=== PATIENT | female | born 1945 | race Caucasian/White ===

== ENCOUNTER → 2023-07-21 | Outpatient (CLI) | payer MEDICARE, SELFPAY ==
--- NOTE | 2023-07-21 13:15 | CT_ITS ---
STUDY: CT ABDOMEN AND PELVIS WITH AND WITHOUT CONTRAST REASON FOR EXAM: Female, 78 years old. abnormal liver image. History of right renal mass. RADIATION DOSAGE (If Supplied By Facility): CTDIvol = ( 10.69 ) mGy, DLP = ( 934.2 ) mGycm TECHNIQUE: Transaxial images were obtained from the dome of the diaphragm to the symphysis pubis without oral contrast. IV 100mL Isovue-300 was administered. Sagittal and coronal images were reconstructed. Individualized dose optimization techniques were used for this CT. COMPARISON: None. FINDINGS: The visualized lung bases are unremarkable. The visualized portions of the heart are within normal limits. Small cysts seen in the right lobe of the liver. There are surgical clips in the gallbladder fossa consistent with a prior cholecystectomy. Normal spleen. Normal pancreas. Normal bilateral adrenal glands. 8mm cyst in the upper lateral aspect of the right kidney. No renal mass is seen. Soft tissue density and adjacent to the lower and midportion of the right kidney most likely represents the psoas muscle. There is evidence of a labral convex scoliosis. Multiple small cysts are seen in the left kidney. Normal visualized stomach. Normal small intestine. Normal colon. The appendix is visualized and appears normal. Normal abdominal aorta. Normal inferior vena cava. Normal retroperitoneum. Normal urinary bladder. Normal abdominal wall. There are diffuse degenerative changes of the visualized lumbar spine. Prior fusion at the L4-L5 level. CT/CT Abd/Pelvis W/WO Contrast IMPRESSION: No right renal masses seen. Left renal cysts. Small hepatic cysts. Electronically Signed: Cameron Messer MD at 15:31 EST ,
[2023-07-21 13:41] LABS: CREATININE FINGERSTICK < 1.0 mg/dL (0.55-1.02); EGFR FINGERSTICK > 60.0000 mL/min (>60)
== END | disposition home or self-care (01) ==
LOC: CT 13:15
PROVIDERS: PCP Family Medicine; Referring Provider Family Medicine; Visit Provider Family Medicine
DX: R93.2 Abnormal findings on diagnostic imaging of liver and biliary tract (principal)
CPT/HCPCS: 74178; Q9967

== ENCOUNTER 2023-07-30 10:30 | Outpatient (RCR) | payer MEDICARE, SELFPAY ==
--- NOTE | 2023-05-21 09:57 | HP.PTEVAL_ITS ---
Patient's Visit Information Visit Information Visit Information: GORDO AMBROSIO is a 78 year old F referred to Physical Therapy by KUNAL DANG with a diagnosis of SPONDYLOLISTHESIS. S/P SO LUMBAR LAMINECTOMY AND FUSION 04/25/23. Date of Evaluation: 05/21/23 Physical Therapist: Suzette Malone, PT, Cert MDT Visit Plan Frequency: 2-3x /Week Duration: 4-6 Weeks Plan: PT RE-CHECK JUN 11 2023. CONTINUE BACK BRACE IN WEIGHT BEARING AND NO BENDING OR TWISTING UNTIL JUN 11 2023. GAIT TRAINING WITH LEAST AD ON LEVEL SURFACES AND UP AND DOWN STEPS TOLERATED. POSTURE CORRECTION/STRENGTHENING, INSTRUCTION IN APPROPRIATE BODY MECHANICS AND ACTIVITY MODIFICATIONS. DLS STARTING WITH A NEUTRAL SPINE PROGRESSING ROM TOLERATED. SO LE ROM, STRETCHING AND STRENGTHENING. HEP INSTRUCTION. 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 LIVES WITH IN 2 STORY HOME WITH BEDROOMS UPSTAIRS AND LAUNDRY IN BASEMENT. Present symptoms: LEFT LOW BACK PAIN. INTERMITTENT R LE NUMBNESS - THE WHOLE LEG TO THE FOOT. INTERMITTENT TWINGES OF PAIN IN THE LEFT LEG - DOWN LOWER TOWARDS THE FOOT. Present since: CHRONIC BACK PROBLEMS BUT SYMPTOMS GREATLY WORSENED IN DECEMBER 2022. Pain Scale: WORST 2/10, LEAST 0/10 Currently: 0/10 Is it getting better, worse or staying the same: GETTING BETTER Commenced as a result of: FLARED UP IN DECEMBER 2022 FOR NO APPARENT REASON. Worse: RIDING IN THE CAR INCREASES R LE NUMBNESS. BACK PAIN INCREASES WITH STANDING AND WALKING AND BEING UP DOING THINGS LIKE COOKING AND SQUATTING DOWN TO GET THINGS OUT OF THE CUPBOARD. Better: SITTING DOWN. Disturbed sleep: NO Previous history/Previous treatment: CHRONIC LOW BACK PAIN TREATED WITH CHIROPRACTIC, PHYSICAL THERAPY AND INJECTIONS YEARS AGO AND WAS DOING GOOD FOR ABOUT 10 YEARS UNTIL THIS YEAR. Treatment this episode: INJECTIONS FROM DR. TREVIÑO SEEMED TO HELP PRIOR TO SURGERY BUT HAD SECOND OPINION AT [facility] WITH DR. CHASTITY CONCEPCION AND PRECEEDED WITH SURGERY. TAKING GABAPENTIN. SO POST LAMINECTOMIES L3, L4, L5, POSTERIOR FUSION, L4-L5 AND SO INSTRUMENTATION L4-L5 ON 04/25/[address] CHASTITY CONCEPCION. Coughing/sneezing/straining: NEGATIVE FOR INCREASED PAIN Gait: WALKING AROUND HOUSE WITHOUT AD. USING CART AT [employer] - HAS BEEN A COUPLE OF TIMES SINCE SURGERY. USING CANE WHEN OUT OF HOUSE. NO FALLS SINCE SURGERY. WALKING DAILY IN THE HOUSE ABOUT TWICE A DAY FOR ABOUT 5 MIN EA CONTINUOUSLY BUT IN GENERAL BEING MORE ACTIVE. STATES SHE WAS SUPPOSED TO START WITH 5 MIN WALKS 2 TIMES A DAY AFTER SURGERY AND WORK UP TO WALKING 2 TIMES A DAY FOR 30 MINUTES BUT SHE HAS NOT FOLLOWED THROUGH WITH THAT. Bowel or Bladder Dysfunction: NO Accidents: NO Unexplained weight loss: NO Imaging: PATIENT REPORTS POST SURGERY IMAGING LOOKS GOOD. PMH/Recent major surgery: HTN, HIGH CHOLESTEROL, HYPOTHYROIDISM. OTHER: PATIENT REPORTS SHE HAS A BACK BRACE AND SHE IS WEARING IT ABOUT 1/2 THE DAY. SHE REPORTS SHE DOESN'T WEAR IT SITTING AND SHE DOESN'T ALWAYS WEAR IT WHEN SHE GETS UP. SHE REPORTS SHE ISN'T SURE HOW MUCH OR HOW LONG SHE IS SUPPOSED TO WEAR IT. SHE ALSO ISN'T SURE HOW LONG SHE IS SUPPOSED TO AVOID BENDING, LIFTING AND TWISTING. PHYSICIAN FOLLOW UP IN 3 MONTHS. Objective Objective: Sitting/Standing Posture: SCOLIOSIS AND MILD SLOUCH. Active Correction of posture: NE. ABLE TO PARTIALLY CORRECT BUT NOT MAINTAIN. Other Observations: THIS PATIENT AMBULATES [facility] INTO PT WITH A STRAIGHT CANE, GOOD BALANCE AND FAIR CADANCE. SHE IS ABLE TO TRANSFER FROM SIT TO STAND WITHOUT UE ASSIST BUT IT IS DIFFICULT. SHE IS MAY TO [facility] DON AND DOFF BACK BRACE. Sensory deficit: SO LE LIGHT TOUCH SENSATION GROSSLY INTACT AND SYMMETRICAL ROM deficit: SO LE HS AND GASTROC TIGHTNESS Motor deficit: R HIP 4-/5, KNEE 4/5, ANKLE 5/5. L HIP 4-/5, KNEE 5/5, ANKLE 5/5. Reflexes: 1/2 SO LE'S. Dural Signs: NEGATIVE SO LE'S. Lumbar mvmt loss: NT Core strength: POOR Palpation: INCISION LOOKS GOOD WITHOUT ANY SIGNS OF INFECTION AND PATIENT REPORTS WILL INSPECT IT DAILY FOR SIGNS OF INFECTION. TREATMENT: NEUROMUSCULAR REEDUCATION - RETRAINING OF MVMT AND POSTURE FOR SITTING, LYING AND STANDING ACTIVITIES. NO BENDING OR TWISTING. BACK BRACE ON WHEN UP AND ABOUT. WALKING PROGRAM WORKING UP SLOWLY TO 30 MINUTE BRISK WALK. PATIENT STATES SHE CAN WORK ON THIS AT THE [employer]. Balance/Special Test Scores Oswestry Low Back Score: 10 Goals Goal 1:: DECREASE C/O LOW BACK AND SO LE SX'S BY 50% Goal Time Frame: 4-6 Weeks Goal 2:: INDEP AND SAFE GAIT ON LEVEL SURFACES WITHOUT AD AND UP AND DOWN STEPS WITH ONE HR RECIP TO RETURN TO PLOF Goal Time Frame: 4-6 Weeks Goal 3:: PATIENT WILL BE ABLE TO RESUME NORMAL HOUSEWORK CHORES WITHOUT C/O PAIN TO RETURN TO PLOF Goal Time Frame: 4-6 Weeks Anticipated Interventions Patient/Client Instruction: Educate patient on: Condition, Plan of Care and Risk Factors For the Purpose of:: To improve self management Therapeutic Exercise to Include: Strength training, Body mechanics, Postural training, Flexibilty training, Gait and locomotor training, Neuromotor development and Dynamic Lumbar Stabilization For the Purpose of:: To decrease pain, To increase ROM, To improve muscle performance and motor function, To increase tolerance to activity/condition/position, To improve ability of physical actions for home/community/work/leisure and To improve gait and locomotor functions Text: Thank you for the opportunity to evaluate your patient. For Medicare and Medicare HMO plans, please review the plan of care and approve it. It will need to be FAXED BACK to us at [phone] for Medicare purposes. For Medicare only, by signing this I certify the plan of care. Please let me know if there are questions or concerns regarding this plan of care. Physician Signature: Date:
--- NOTE | 2023-06-24 12:04 | HP.PTREVAL_ITS ---
Re-Evaluation Intro: KUNAL DANG, It has been my pleasure to treat GORDO AMBROSIO over the last 11 visits for SPONDYLOLISTHESIS. S/P SO LUMBAR LAMINECTOMY AND FUSION 04/25/23. Please see the progress note below for an update on the physical therapy plan of care! Subjective Subjective: I HAVE NO PAIN IN MY LEFT LEG. THAT WAS MY MAIN THING. IN THE LAST COUPLE OF DAYS I HAVE FELT MORE NORMAL AND I HAVE BEEN ABLE TO DO PRETTY MUCH WHATEVER I WANTED BUT MY R LEG STILL BOTHERS ME. IT TINGLES AND SOMETIMES AMOS DOWN THE LEG BUT IT DOESN'T STOP ME AND IT COMES AND GOES. 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 SHE IS NO LONGER USING THE CANE EXCEPT WHEN SHE IS USING THE CANE FOR HER WALKS (15 MIN ONCE A DAY PLUS 10 MIN ONCE A DAY). ONLY WEARING THE BACK BRACE FOR DRIVING NOW. Objective Objective/Function: PATIENT WAS SEEN TODAY FOR RE-ASSESSMENT OF PROGRESS TOWARD THE SET PT GOALS AND THE NEED FOR FURTHER PHYSICAL THERAPY VS READINESS FOR DISCHARGE. UPON EXAM TODAY SO LE STRENGTH IS 5/5 EXCEPT HIPS 4+/5 AND CORE STRENGTH IS FAIR BUT IMPROVING. SHE IS MAKING GOOD PROGRESS TOWARD ALL GOALS AND A GOOD CANDIDATE TO CONTINUE PT PER POC BELOW. PATIENT IS AGREEABLE. Plan Plan Plan: CONTINUE TO FOCUS ON CORE STABILITY WITH NEUTRAL SPINE. SO LE ROM, STRETCHING AND STRENGTHENING. HEP INSTRUCTION. Balance/Gait/Functional tests Balance/Special Test Scores Oswestry Low Back Score: 7 Goals Goals Goal 1:: DECREASE C/O LOW BACK AND SO LE SX'S BY 50% Goal Time Frame: 4-6 Weeks Goal Progress: Progressing Goal 2:: INDEP AND SAFE GAIT ON LEVEL SURFACES WITHOUT AD AND UP AND DOWN STEPS WITH ONE HR RECIP TO RETURN TO PLOF Goal Time Frame: 4-6 Weeks Goal Progress: Goal Met Goal 3:: PATIENT WILL BE ABLE TO RESUME NORMAL HOUSEWORK CHORES WITHOUT C/O PAIN TO RETURN TO PLOF Goal Time Frame: 4-6 Weeks Goal Progress: Progressing Anticipated Interventions Anticipated Interventions Patient/Client Instruction: Educate patient on: Condition, Plan of Care and Risk Factors For the Purpose of:: To improve self management Therapeutic Exercise to Include: Strength training, Body mechanics, Postural training, Flexibilty training, Gait and locomotor training, Neuromotor development and Dynamic Lumbar Stabilization For the Purpose of:: To decrease pain, To increase ROM, To improve muscle performance and motor function, To increase tolerance to activity/condition/position, To improve ability of physical actions for home/community/work/leisure and To improve gait and locomotor functions Re-Evaluation Ending Re-evaluation ending: Please do not hesitate to contact me at [phone] by phone or if you have questions or concerns regarding this new plan of care! Sincerely, Suzette Malone, PT, Cert MDT
--- NOTE | 2023-07-30 11:02 | HP.PTREVAL_ITS ---
Re-Evaluation Intro: KUNAL DANG, It has been my pleasure to treat GORDO AMBROSIO over the last 18 visits for SPONDYLOLISTHESIS. S/P SO LUMBAR LAMINECTOMY AND FUSION 04/25/23. Please see the progress note below for an update on the physical therapy plan of care! Subjective Subjective: PATIENT REPORTS SHE CAN DO EVEN MORE IN THE KITCHEN NOW. I'M GETTING THE PANS OUT AND BENDING OVER. SHE REPORTS THAT EVEN THOUGH SHE HAS SOME NUMBNESS, TINGLING AND BURNING IN THE RIGHT LEG AND SOMETIMES TO THE FOOT IT DOESN'T STOP HER FROM DOING THINGS. 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 STATES SHE SAW THE SURGEON YESTERDAY AND HE SAID SHE DOESN'T HAVE ANY RESTRICTIONS. SHE IS NO LONGER WEARING THE BRACE AND DOESN'T FEEL SHE NEEDS IT. HE REPEATED X-RAYS OF HER BACK AND STATES HE TOLD HER EVERYTHING LOOKS GOOD AND WANTS TO SEE HER AGAIN IN 4 MONTHS. LEAVING FOR [place] 08/08/23. WILL CONTINUE EX'S SHE HAS LEARNED HERE. Objective Objective/Function: PATIENT WAS SEEN TODAY FOR RE-ASSESSMENT OF PROGRESS TOWARD THE SET PT GOALS AND THE NEED FOR FURTHER PHYSICAL THERAPY VS READINESS FOR DISCHARGE. PATIENT HAS MADE GOOD PROGRESS WITH PT AND IS APPROPRIATE FOR AND AGREEABLE TO DISCHARGE. UPON EXAM TODAY THIS PATIENT AMBULATES INDEP'LY INTO PT WITHOUT ANY ASSISTIVE DEVICES OR GROSS DEVIATIONS NOTED. POSTURE: SCOLIOSIS. INCREASED KYPHOSIS. SO LE LIGHT TOUCH SENSATION IS GROSSLY INTACT AND SYMMETRICAL DESPITE PATIENT FEELING N/T R LE. SO LE STRENGTH IS GROSSLY 5/5. LUMBAR MVMT LOSS: FLEX - MIN EXT - KATHI R SG - KATHI L SG - KATHI PATIENT DENIES PAIN WITH LUMBAR ROM TESTING ALL PLANES. Plan Plan Plan: D/C AFTER EX SESSION TODAY. PATIENT AGREEABLE. Balance/Gait/Functional tests Balance/Special Test Scores Oswestry Low Back Score: 6 Goals Goals Goal 1:: DECREASE C/O LOW BACK AND SO LE SX'S BY 50% Goal Time Frame: 4-6 Weeks Goal Progress: Goal Met Goal 2:: INDEP AND SAFE GAIT ON LEVEL SURFACES WITHOUT AD AND UP AND DOWN STEPS WITH ONE HR RECIP TO RETURN TO PLOF Goal Time Frame: 4-6 Weeks Goal Progress: Goal Met Goal 3:: PATIENT WILL BE ABLE TO RESUME NORMAL HOUSEWORK CHORES WITHOUT C/O PAIN TO RETURN TO PLOF Goal Time Frame: 4-6 Weeks Goal Progress: Goal Met Anticipated Interventions Anticipated Interventions Patient/Client Instruction: Educate patient on: Condition, Plan of Care and Risk Factors For the Purpose of:: To improve self management Therapeutic Exercise to Include: Strength training, Body mechanics, Postural training, Flexibilty training, Gait and locomotor training, Neuromotor development and Dynamic Lumbar Stabilization For the Purpose of:: To decrease pain, To increase ROM, To improve muscle performance and motor function, To increase tolerance to activity/condition/position, To improve ability of physical actions for home/community/work/leisure and To improve gait and locomotor functions Re-Evaluation Ending Re-evaluation ending: Please do not hesitate to contact me at [phone] by phone or Fax: if you have questions or concerns regarding this new plan of care! Sincerely, Suzette Malone, PT, Cert MDT
--- NOTE | 2023-11-17 11:59 | HP.PTDCSUM_ITS ---
Discharge Summary D/C summary: It has been my pleasure to treat GORDO AMBROSIO referred by KUNAL DANG, with the diagnosis of SPONDYLOLISTHESIS. S/P SO LUMBAR LAMINECTOMY AND FUSION 04/25/23 for a total of 18 visit(s). Discharge Date: Please see the following information for a summary of their discharge status. Subjective Subjective: PATIENT REPORTS SHE CAN DO EVEN MORE IN THE KITCHEN NOW. I'M GETTING THE PANS OUT AND BENDING OVER. SHE REPORTS THAT EVEN THOUGH SHE HAS SOME NUMBNESS, TINGLING AND BURNING IN THE RIGHT LEG AND SOMETIMES TO THE FOOT IT DOESN'T STOP HER FROM DOING THINGS. 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 STATES SHE SAW THE SURGEON YESTERDAY AND HE SAID SHE DOESN'T HAVE ANY RESTRICTIONS. SHE IS NO LONGER WEARING THE BRACE AND DOESN'T FEEL SHE NEEDS IT. HE REPEATED X-RAYS OF HER BACK AND STATES HE TOLD HER EVERYTHING LOOKS GOOD AND WANTS TO SEE HER AGAIN IN 4 MONTHS. LEAVING FOR [place] 08/08/23. WILL CONTINUE EX'S SHE HAS LEARNED HERE. Pain Low back: Pain Intensity (Out of 10): 0 right leg: Pain Intensity (Out of 10): Unrated Overall Improvement % Improvement: 95 Objective Objective/Function: PATIENT WAS SEEN TODAY FOR RE-ASSESSMENT OF PROGRESS TOWARD THE SET PT GOALS AND THE NEED FOR FURTHER PHYSICAL THERAPY VS READINESS FOR DISCHARGE. PATIENT HAS MADE GOOD PROGRESS WITH PT AND IS APPROPRIATE FOR AND AGREEABLE TO DISCHARGE. UPON EXAM TODAY THIS PATIENT AMBULATES INDEP'LY INTO PT WITHOUT ANY ASSISTIVE DEVICES OR GROSS DEVIATIONS NOTED. POSTURE: SCOLIOSIS. INCREASED KYPHOSIS. SO LE LIGHT TOUCH SENSATION IS GROSSLY INTACT AND SYMMETRICAL DESPITE PATIENT FEELING N/T R LE. SO LE STRENGTH IS GROSSLY 5/5. LUMBAR MVMT LOSS: FLEX - MIN EXT - KATHI R SG - KATHI L SG - KATHI PATIENT DENIES PAIN WITH LUMBAR ROM TESTING ALL PLANES. Goals Goal 1:: DECREASE C/O LOW BACK AND SO LE SX'S BY 50% Goal Progress: Goal Met Goal 2:: INDEP AND SAFE GAIT ON LEVEL SURFACES WITHOUT AD AND UP AND DOWN STEPS WITH ONE HR RECIP TO RETURN TO PLOF Goal Progress: Goal Met Goal 3:: PATIENT WILL BE ABLE TO RESUME NORMAL HOUSEWORK CHORES WITHOUT C/O PAIN TO RETURN TO PLOF Goal Progress: Goal Met Plan Plan: D/C AFTER EX SESSION TODAY. PATIENT AGREEABLE. D/C Information d/c sentence: If there are questions or concerns regarding this patient's physical therapy, please feel free to call me at [phone]. Thank you for the referral of this patient. Sincerely, Suzette Malone, PT, Cert MDT Balance/Gait/Functional tests Balance/Special Test Scores Oswestry Low Back Score: 6 Improvement % Improvement: 95
== END 2023-07-30 19:00 | disposition home or self-care (01) ==
LOC: PT 10:30
PROVIDERS: PCP Family Medicine
DX: M43.16 Spondylolisthesis, lumbar region (principal)
CPT/HCPCS: 97110; 97112; 97162; 97164; 97530

== ENCOUNTER → 2023-11-21 | Outpatient (CLI) | payer MEDICARE, SELFPAY ==
[2023-11-21 11:19] LABS: ALB/GLOB Ratio 1.1 RATIO (0.9-2.4); AST(SGOT) 24 U/L (15-37); Alanine Aminotransfer ALT/SGPT 26 U/L (13-56); Albumin, Serum 3.6 g/dL (3.2-5.0); Alkaline Phosphatase 58 U/L (45-117); Anion Gap 6 (5-15); BUN 21 mg/dL (7-18); BUN/Creat Ratio 22.4 RATIO (10-20); Calcium,Total 9.5 mg/dL (8.5-10.1); Chloride 105 mmol/L (98-107); Cholesterol 172 mg/dL (200); Creatinine, Serum 0.94 mg/dL (0.55-1.02); EST Glomerular Filtration Rate 61 mL/min (>60); Est Glom Filt Rate - Afr Amer 74 mL/min (>60); Globulin 3.3 g/dL (2.2-4.2); Glucose 104 mg/dL (74-106); High Density Lipoprotein 79 mg/dL; Potassium 3.5 mmol/L (3.5-5.1); Protein, Total 6.9 g/dL (6.4-8.2); Sodium Level 139 mmol/L (136-145); T4 Free Direct 1.15 ng/dL (0.76-1.46); Thyroid Stim Hormone (TSH) 2.38 uIU/mL (0.358-3.74); Triglycerides 67 mg/dL; Very Low Density Lipoprotein 13 mg/dL (5-40)
[2023-11-24 13:07] LABS: Microalbumin,Random Urine 10.4 mg/L (NO RANGE EST.)
== END | disposition home or self-care (01) ==
LOC: MFPLAB 08:40
PROVIDERS: PCP Family Medicine; Visit Provider Family Medicine
DX: E78.2 Mixed hyperlipidemia (principal); I10 Essential (primary) hypertension
CPT/HCPCS: 36415; 80053; 80061; 82043; 84439; 84443

== ENCOUNTER → 2023-12-16 | Outpatient (CLI) | payer MEDICARE, SELFPAY ==
--- NOTE | 2023-12-16 08:15 | BD_ITS ---
STUDY: DUAL ENERGY X-RAY ABSORPTIOMETRY / DXA REASON FOR EXAM: Female, 78 years old. M810 TECHNIQUE: Bone Mineral Density (BMD) measurements of lumbar spine and bilateral hips were obtained. COMPARISON: None. FINDINGS: Lumbar Spine (L1-L4): g/cm2 (1.201) / T-score (2.0) / Z-score (4.5) Findings are suggestive of normal bone density with a low fracture risk. Left Femur Total: g/cm2 (0.787) / T-score (-1.3) / Z-score (0.7) Left Femoral Neck: g/cm2 (0.656) / T-score (-1.7) / Z-score (0.5) Right Femur Total: g/cm2 (0.781) / T-score (-1.3) / Z-score (0.7) Right Femoral Neck: g/cm2 (0.670) / T-score (-1.6) / Z-score (0.6) BD/Dexa Bone Density Study IMPRESSION: The patient is considered osteopenic as outlined below according to World Landen Organization (WHO) criteria with a moderate fracture risk. Reference Information: The T-score is the number of standard deviations above or below the standard which is normal for young adults at their peak bone mineral density. The World Health Organization (WHO) interprets the T-scores as follows: Above -1 Normal bone density Between -1 and -2.5 Osteopenia Equal to / or below -2.5 Osteoporosis As a practical clinical guideline, osteopenia may be graded as follows: Mild -1 through -1.5 Moderate -1.6 through -2.0 Severe -2.1 through -2.4 The Z-score is the number of standard deviations above or below age-matched controls. A Z-score of less than -1.5 would be considered abnormal. References: 1. NIH Osteoporosis and Related Bone Diseases www osteo.org 2. International Society for Clinical Densitometry www iscd.org 3. National Osteoporosis Foundation www nof.org Electronically Signed: Cameron Messer MD at 10:24 EDT ,
== END | disposition home or self-care (01) ==
LOC: OPBD 08:12
PROVIDERS: PCP Family Medicine; Referring Provider Family Medicine; Visit Provider Family Medicine
DX: M81.0 Age-related osteoporosis without current pathological fracture (principal)
CPT/HCPCS: 77080

== ENCOUNTER → 2024-05-25 | Outpatient (CLI) | payer MEDICARE, SELFPAY | END | disposition home or self-care (01) | LOC: MFPLAB 09:02 | PROVIDERS: PCP Family Medicine; Visit Provider Family Medicine | DX: E03.9 Hypothyroidism, unspecified (principal); M85.80 Other specified disorders of bone density and structure, unspecified site | CPT/HCPCS: 36415; 82306; 84443 ==

== ENCOUNTER → 2024-06-08 | Outpatient (CLI) | payer MEDICARE, SELFPAY ==
--- NOTE | 2024-06-08 12:28 | BI_ITS ---
MAMMOGRAPHY - BILATERAL SCREENING REASON FOR EXAM: Female, 79 years old. Routine annual screening examination. PERTINENT HISTORY: Non-contributory. Remote right stereotactic breast biopsy. TECHNIQUE: Digital bilateral breast davida (3D mammographic acquisition) in the CC and MLO projections. 2-D mediolateral oblique (MLO) and craniocaudad (CC) views of both breasts were obtained. CAD: Full Field Digital Mammography with Computer Added Detection was performed. COMPARISON: Comparison is made with prior outside examination dated February 24, 2023. FINDINGS: Breast Composition: The breasts are extremely dense, which lowers the sensitivity of mammography. There are no dominant masses or suspicious calcifications. No other significant abnormalities are identified. There has been no significant change since the prior study. BI/SCRN MAMM (CAD)W/DAVIDA BILAT IMPRESSION: Stable bilateral screening mammogram. Yearly follow-up mammogram recommended. (A) ASSESSMENT CATEGORY: BIRADS Category 1: Negative. A letter regarding these results will be sent to the patient by the facility within 30 days. Approximately 10% of breast cancers are not detected by mammography. A normal mammogram should not delay biopsy of a clinically suspicious abnormality. [id number] Electronically Signed: Cameron Messer MD at 14:46 EDT ,
== END | disposition home or self-care (01) ==
LOC: OPBI 12:27
PROVIDERS: PCP Family Medicine; Referring Provider Family Medicine; Visit Provider Family Medicine
DX: Z12.31 Encounter for screening mammogram for malignant neoplasm of breast (principal)
CPT/HCPCS: 77063; 77067

== ENCOUNTER 2024-06-17 09:30 | Day surgery (SDC) | payer MEDICARE, SELFPAY ==
[2024-06-17] VITALS (7 sets, daily range): BP systolic 104–145; BP diastolic 58–64; PULSE 58–84; RESP 14–17; TEMP 36.1–36.6; O2SAT 98–100; BMI 21.9
[2024-06-17] MEDS: Vancomycin IV 1,000 MG/200 ML BAG 200 MG IV (09:59)
[2024-06-17 10:13] LABS: Hematocrit 37.3 % (37-47); Hemoglobin 12.4 g/dL (12.0-15.0); Mean Corp Hgb Conc 33.2 g/dL (32-36); Mean Corpuscular Hgb 29.2 pg (27.0-32.0); Mean Corpuscular Volume 87.8 fL (81-99); Mean Platelet Vol. 9.6 fl (6.2-12.0); Platelet Count 232 K/mm3 (150-450); RBC Distribution Width CV 12.2 % (11.6-14.6); RBC Distribution Width SD 39.2 fl (35.1-43.9); Red Blood Count 4.25 M/mm3 (4.2-5.4); White Blood Count 5.2 K/mm3 (4.4-11.0)
[2024-06-17 10:26] LABS: Anion Gap 5 (5-15); BUN 18 mg/dL (7-18); BUN/Creat Ratio 16.1 RATIO (10-20); Calcium,Total 9.7 mg/dL (8.5-10.1); Chloride 105 mmol/L (98-107); Creatinine, Serum 1.12 mg/dL (0.55-1.02); EST Glomerular Filtration Rate 50 mL/min (>60); Est Glom Filt Rate - Afr Amer 60 mL/min (>60); Estimated Creatinine Clearance 33.69 ml/min; Glucose 110 mg/dL (74-106); Potassium 3.9 mmol/L (3.5-5.1); Sodium Level 140 mmol/L (136-145)
[2024-06-17] MEDS: Lidocaine 1% /Epi 1:100 (20ml) 20 ML Vial (11:53)
== END 2024-06-17 13:15 | disposition home or self-care (01) ==
LOC: SDC 09:33 → AC 09:33
PROVIDERS: PCP Family Medicine; Referring Provider Urology; Visit Provider Urology
PROC: (CPT 64561; principal; 2024-06-17 11:00)
DX: R33.9 Retention of urine, unspecified (principal); N31.9 Neuromuscular dysfunction of bladder, unspecified; K21.9 Gastro-esophageal reflux disease without esophagitis; E78.00 Pure hypercholesterolemia, unspecified; I10 Essential (primary) hypertension; Z98.1 Arthrodesis status; Z90.49 Acquired absence of other specified parts of digestive tract; Z90.710 Acquired absence of both cervix and uterus; Z87.440 Personal history of urinary (tract) infections; R39.198 Other difficulties with micturition
CPT/HCPCS: 64561; 00300; 72170; 76000; 80048; 85027; A4216; J2405

== ENCOUNTER 2024-07-01 08:34 | Day surgery (SDC) | payer MEDICARE, SELFPAY ==
[2024-07-01] VITALS (9 sets, daily range): BP systolic 88–149; BP diastolic 52–82; PULSE 55–70; RESP 16–18; TEMP 36.7–36.9; O2SAT 98–100; BMI 22.1
[2024-07-01] MEDS: Vancomycin IV 1,000 MG/200 ML BAG 200 MG IV (09:45)
--- NOTE | 2024-07-01 09:57 | PCM.PRE.AN2 ---
ASA Classification* ASA Classification ASA Classification: 2 Assessment & Plan Anesthesia* Anesthesia Assessment Anesthesia Assessment: Discussed sedation and/or anesthesia options, risks, benefits, and alternatives with patient/parents/legal guardian/POA. Questions invited. The patient/parents/legal guardian/POA seems to understand and agrees to proceed with anesthesia plan. Reviewed the physical assessment, medical history, allergy history and patient home medications list prior to surgery/procedure/anesthetic and documented any changes. Performed airway and anesthesia risk assessments. Anesthesia Type Anesthesia Type: MAC History Source History Obtained from:: Patient and Chart Anesthesia Focused Assessment* Temperature: 98.4 F Pulse Rate: 63 Blood Pressure: 149/67 Respiratory Rate: 18 Pulse Ox: 100 Airway Assessment Mouth opens: >3 cm Mallampati Score: I Teeth Condition: Intact Neck Range of motion (ROM): Full ROM Focused Labs Anesthesia Preop lab: CBC WBC 5.2 K/mm3 (4.4-11.0) 06/17/24 09:56 RBC 4.25 M/mm3 (4.2-5.4) 06/17/24 09:56 Hgb 12.4 g/dL (12.0-15.0) 06/17/24 09:56 Hct 37.3 % (37-47) 06/17/24 09:56 Plt Count 232 K/mm3 (150-450) 06/17/24 09:56 CHEMISTRY Potassium 3.9 mmol/L (3.5-5.1) 06/17/24 09:56 Sodium 140 mmol/L (136-145) 06/17/24 09:56 BUN 18 mg/dL (7-18) 06/17/24 09:56 Creatinine 1.12 mg/dL (0.55-1.02) H 06/17/24 09:56 Glucose 110 mg/dL (74-106) H 06/17/24 09:56 TSH 2.990 uIU/mL (0.358-3.740) 05/25/24 09:02 COAG Pre-Assessment Diagnosis/Proposed Procedure Planned Operative Procedure(s): AXONICS STAGE 2 Anesthesia History 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 When Was Last Pacemaker Check QUESTION #4 FULL TEXT: You/Your Family Experience fever (hyperthermia) with Anesthesia Last Oral Intake Last Oral intake: Last Oral Intake NPO since 05:00 07/01/24 09:50 Meds taken in AM with sips of Yes 07/01/24 09:50 water? Meds patient instructed to take am of surgery PONV PONV - agriculture engineer: PONV - agriculture engineer Female Yes 06/09/24 15:50 HX of Motion Sickness Yes 06/09/24 15:50 HX of N/V After Surgery Yes 06/09/24 15:50 Non-Smoker Yes 06/09/24 15:50 Duration of Surgery greater No 06/09/24 15:50 than 60 minutes Number of Risk Factors 4 06/09/24 15:50 PONV Score Severe Risk 06/09/24 15:50 Height & Weight Height & Weight: Anesthesia: Height & Weight Height 5 ft 3 in 07/01/24 09:50 Weight: 56.7 kg 07/01/24 09:50 Body Mass Index (BMI) 22.1 07/01/24 09:50 Respiratory Assessment Respiratory Assessment - agriculture engineer: Respiratory Tract Infection Hx - agriculture engineer Hx Respiratory Tract Infection No 06/09/24 15:50 STOP Sleep Apnea STOP Sleep Apnea - agriculture engineer: STOP Sleep Apnea - agriculture engineer Hx Hypertension Yes: CONTROLLED WITH MED 06/09/24 15:50 Hx Sleep Apnea No 06/09/24 15:50 CPAP BIPAP Do you snore loudly (louder No 06/09/24 15:50 than talking or can be heard Do you often feel tired/ No 06/09/24 15:50 fatigued/ sleepy during daytime? Has anyone observed you stop No 06/09/24 15:50 breathing during sleep? STOP Results Negative 06/09/24 15:50 QUESTION #5 FULL TEXT : Do you snore loudly (louder than talking or can be heard through closed doors)? 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 Specify any problems Hx of Preganancy in last 3 No 06/09/24 15:50 Months Nurse Filling Out Transfusion DSCHRIBER 06/09/24 15:50 & Questions: Date: 06/09/24 06/09/24 15:50 Time: 15:51 06/09/24 15:50 Patient unable to answer at this time (ie. confused, unrespo /Reproduction History /Reproductive History - agriculture engineer: /Reproductive Hx- agriculture engineer Hx Now No 06/09/24 15:50 Gestational Age (in weeks): EDC: Hx Hx Para Hx Section SAB No 06/09/24 15:50 Active Medications Active Medications: Current Medications Generic Name Dose Route Start Last Admin Trade Name Freq PRN Reason Stop Dose Admin Vancomycin HCl 1,000 mg in 200 mls @ 200 mls/hr 07/01/24 09:55 07/01/24 09:45 Vancomycin IV 07/01/24 10:54 200 mls/hr PREOP ONE Administration PFSH Medical History Neurogenic bladder Wears glasses Post-menopausal Thyroid disease High cholesterol Restless legs Back pain Gastric reflux Non-smoker Leg cramps History of trigger finger History of stress test Hypertension History of cystocele Home Medications ?Medication ?Instructions ?Recorded ?Last Taken ?Type aspirin 81 mg tablet,delayed 81 mg PO MOWEFR 06/09/24 Unknown History release (Adult Aspirin Regimen) biotin 5,000 mcg sublingual tablet 5,000 mcg sublingual DAILY 06/09/24 06/16/24 History calcium carbonate 300 mg PO DAILY 06/09/24 06/16/24 History cholecalciferol (vitamin D3) 50 50 mcg PO DAILY 06/09/24 06/16/24 History mcg (2,000 unit) capsule (Vitamin D3) famotidine 20 mg tablet (Acid 20 mg PO DAILY PRN GERD 06/09/24 07/01/24 05:00 History Controller) gabapentin 300 mg capsule 300 mg PO TID 06/09/24 07/01/24 05:00 History levothyroxine 50 mcg tablet 50 mcg PO DAILY 06/09/24 07/01/24 05:00 History simvastatin 40 mg tablet 40 mg PO DAILY 06/09/24 06/16/24 History valsartan 80 1 tab PO DAILY 06/09/24 06/16/24 History mg-hydrochlorothiazide 12.5 mg tablet (Diovan HCT) Allergy/AdvReac Type Severity Reaction Status Date / Time No Known Allergies Allergy Verified 07/01/24 09:48 Surgical History History of cystoscopy Hx of colonoscopy History of cystoscopy History of lumbar fusion Hx of right cataract extraction Hx of left cataract extraction History of repair of rectocele Hx laparoscopic cholecystectomy Hx of hysterectomy Social History Smoking Status: Never smoker Review of Systems (Anesthesia) ROS Narrative System reviewed and no additional complaints, except as documented.
[2024-07-01] MEDS: Lidocaine 1% /Epi 1:100 (20ml) 20 ML Vial (10:20)
--- NOTE | 2024-07-01 10:43 | PCM.POST.ANE ---
Anesthesia: Postop Eval I Current Vital Signs Temperature: 98.4 F Pulse Rate: 69 Blood Pressure: 100/82 Respiratory Rate: 16 Pulse Ox: 98 Oxygen Delivery Method: Room Air Assessment Airway patent: Yes Spontaneous unlabored respirations: Yes Mental status: Awake and Calm nausea: No Vomiting: No Anesthesia Complication: No Fluid Hydration Crystalloid volume administer (ml): 10 Total IV fluid infused: 10 Progress Note Anesthesia document: Postop Eval 1 completed: Yes
--- NOTE | 2024-07-01 11:04 | DCINST_ITS ---
Discharge Instructions Diet Discharge Diet: No restrictions Activity Discharge Activity: May Shower (Friday morning) May resume sexual activity in: 2 weeks Dressing / Incision Call your doctor if your incision/area has: Continuous Slow Oozing, Sudden Increased Bleeding, Increased Pain/ Swelling, Increased Redness, Foul Smelling Discharge and Swelling at the incision site Call your doctor if you observe: Fever of 101 or Higher, Inability to urinate and Inability to have a bowel movement Remove Dressing in: leave until fall off Additional Dressing/Incision Instructions:: Allow the skin glue to fall off on its own. Follow Up Care Please Follow Up With: Niyah Bee MD When: 3 to 4 weeks in the office Test Results: Test results from this visit will be discussed in further detail at your follow- up appointment, if applicable. Discharge Plan Admission Attending Provider: Niyah Bee Primary Care Provider: Peggy Salas Instructions Print Language: B[place] Discharge Orders/Prescriptions Prescriptions: New oxycodone-acetaminophen [Percocet] 5-325 mg tablet 1 tab PO Q8H PRN (Reason: pain) 3 Days Qty: 9 0RF cephalexin 500 mg capsule 500 mg PO Q12 3 Days Qty: 6 0RF Continued levothyroxine 50 mcg tablet 50 mcg PO DAILY valsartan-hydrochlorothiazide [Diovan HCT] 80-12.5 mg tablet 1 tab PO DAILY simvastatin 40 mg tablet 40 mg PO DAILY gabapentin 300 mg capsule 300 mg PO TID aspirin [Adult Aspirin Regimen] 81 mg tablet,delayed release (DR/EC) 81 mg PO MOWEFR cholecalciferol (vitamin D3) [Vitamin D3] 50 mcg (2,000 unit) capsule 50 mcg PO DAILY biotin 5,000 mcg tablet, sublingual 5,000 mcg sublingual DAILY calcium carbonate 300 mg (750 mg) tablet,chewable 300 mg PO DAILY famotidine [Acid Controller] 20 mg tablet 20 mg PO DAILY PRN (Reason: GERD) Referrals / Follow Up: Peggy Salas MD [Primary Care Provider] - Disposition Disposition (needs filled in before D/C Order can be placed): Home, Self Care
--- NOTE | 2024-07-01 11:08 | PCM.OPRPT ---
Operative Report (Standard) Operative Information Surgery/Procedure Performed: Axonics stage II Surgeon: Niyah Bee Date of Procedure: 07/01/24 Procedure Start Time: : Procedure Stop Time: :34 Pre-Operative Diagnosis: Neurogenic bladder, urgency and straining to void Post-Operative Diagnosis: Same Select all DRAINS/GRAFTS/IMPLANTS that apply: Implanted device Implanted device details: Axonics battery Type of Anesthesia: MAC Estimated Blood Loss: <5cc Specimen collected: No Description of surgery: The patient is a 79-year-old female struggling to urinate who underwent an Axonics stage I 2 weeks ago with insertion of the lead and lead extension. She has had a successful trial and now presents for stage II battery implant. Informed consent was obtained. She was taken to the operating room and placed on the operating room table in a prone position. She was appropriately padded and secured to the table. Anesthesia monitored the head, neck, airway, IV access and vital signs throughout the case. Once anesthesia was appropriately administered she was prepped and draped in usual sterile fashion. The incision overlying the pocket site was opened using hemostats and a knife. The fluid from the pocket site was clear and there is no evidence of infection. The lead extension was cut and removed from the field from the contralateral skin exit site. The pocket was enlarged using the knife, blunt dissection and cautery for hemostasis. The pocket was irrigated. The lead was dried and inserted into the battery and secured using the torque wrench. The battery was placed into the pocket site and impedances were found to be appropriate. The pocket site was closed with interrupted 3-0 Vicryl followed by 4-0 Monocryl subcuticular suturing. Skin glue was then placed over the incision site. She was awakened and taken to the recovery room in good condition. There were no complications during the procedure. Surgical Findings: No evidence of infection, pocket site is on her right hip Toolmaker Grade Three lithographic photographer: No Complications Complications: No Admit VTE Documentation VTE Present on Admission: Yes VTE Mechan Device Prophylaxis: SCD's VTE Pharm Prophylaxis ordered?: No Reason prophylaxis not ordered: Treatment Not Indicated
--- NOTE | 2024-07-01 17:01 | POSTOPAN2_ITS ---
Anesthesia Postop Eval I Sum Postop Eval Completion status Anesthesia document: Postop Eval 1 completed: Yes Anesthesia Postop Eval I Summary Anesthesia Postop Eval I Summary: Anesthesia Postop Eval I: Assessment Summary Airway patent Yes 07/01/24 10:43 MICROSOFT EXCHANGE ADMINISTRATOR.[email or web address] Spontaneous unlabored Yes 07/01/24 10:43 MICROSOFT EXCHANGE ADMINISTRATOR.GDOTT respirations Mental status Awake,Calm 07/01/24 10:43 MICROSOFT EXCHANGE ADMINISTRATOR.GDOTT nausea No 07/01/24 10:43 MICROSOFT EXCHANGE ADMINISTRATOR.GDOTT Vomiting No 07/01/24 10:43 MICROSOFT EXCHANGE ADMINISTRATOR.GDOTT Anesthesia Postop Eval I: Fluid Summary Crystalloid volume administer 10 07/01/24 10:43 MICROSOFT EXCHANGE ADMINISTRATOR.GDOTT (ml) Colloids volume administered ( ml) Blood Product volume administered (ml) Total IV fluid infused 10 07/01/24 10:43 MICROSOFT EXCHANGE ADMINISTRATOR.GDOTT Anesthesia Postop Eval I: Summary Notes Anesthesia Complication No 07/01/24 10:43 MICROSOFT EXCHANGE ADMINISTRATOR.GDOTT Anesthesia Complication Comment: Post-operative progress note Anesthesia: Postop Eval II Evaluation Mental status: Awake and Calm Pain Level: 1 nausea: No Vomiting: No Complications Anesthesia Complication: No
--- NOTE | 2024-07-01 17:01 | PCM.POSTANE2 ---
Anesthesia Postop Eval I Sum Postop Eval Completion status Anesthesia document: Postop Eval 1 completed: Yes Anesthesia Postop Eval I Summary Anesthesia Postop Eval I Summary: Anesthesia Postop Eval I: Assessment Summary Airway patent Yes 07/01/24 10:43 CAKE [email or web address].[email or web address] Spontaneous unlabored Yes 07/01/24 10:43 CAKE WRAPPER.GDOTT respirations Mental status Awake,Calm 07/01/24 10:43 CAKE [email or web address].GDOTT nausea No 07/01/24 10:43 CAKE WRAPPER.GDOTT Vomiting No 07/01/24 10:43 CAKE WRAPPER.GDOTT Anesthesia Postop Eval I: Fluid Summary Crystalloid volume administer 10 07/01/24 10:43 CAKE [email or web address].GDOTT (ml) Colloids volume administered ( ml) Blood Product volume administered (ml) Total IV fluid infused 10 07/01/24 10:43 CAKE [email or web address].GDOTT Anesthesia Postop Eval I: Summary Notes Anesthesia Complication No 07/01/24 10:43 CAKE WRAPPER.GDOTT Anesthesia Complication Comment: Post-operative progress note Anesthesia: Postop Eval II Evaluation Mental status: Awake and Calm Pain Level: 1 nausea: No Vomiting: No Complications Anesthesia Complication: No
== END 2024-07-01 11:42 | disposition home or self-care (01) ==
LOC: SDC 08:34 → AC 08:36
PROVIDERS: PCP Family Medicine; Referring Provider Urology; Visit Provider Urology
PROC: (CPT 64590; principal; 2024-07-01 10:05)
DX: N31.9 Neuromuscular dysfunction of bladder, unspecified (principal); F32.A Depression, unspecified; F41.9 Anxiety disorder, unspecified; Z90.49 Acquired absence of other specified parts of digestive tract; R39.198 Other difficulties with micturition; R33.9 Retention of urine, unspecified; N39.0 Urinary tract infection, site not specified; N95.2 Postmenopausal atrophic vaginitis; I10 Essential (primary) hypertension; Z90.710 Acquired absence of both cervix and uterus; Z98.1 Arthrodesis status
CPT/HCPCS: 64590; 00400; A4216; J2405

== ENCOUNTER 2025-04-15 11:30 | Outpatient (RCR) | payer MEDICARE, SELFPAY ==
--- NOTE | 2025-01-04 10:34 | HP.PTEVAL_ITS ---
Patient's Visit Information Visit Information Visit Information: GORDO AMBROSIO is a 79 year old F referred to Physical Therapy by Dr. Wes Santos MD with a diagnosis of Lumbar radiculopathy. Date of Evaluation: 12/31/24 Physical Therapist: Alirio Hansen DPT Visit Plan Frequency: 2x /Week Duration: 6 Weeks Plan: 1) flexion based exercises to reduce symptoms 2) neutral spine core stability. No US/IFC, patient has bladder stimulator. HEP at [facility]: [place]AL[place], BRETT, fatoumata in hooklying Subjective Subjective: Pt. is here today for her initial evaluation with diagnosis of R lumbar radiculopathy with history of lumbar fusion. Pt. reports she is having some pain in her legs again, but now on the other side. pt. reports that her legs are not giving out on her. Increased pain with standing, walking and lifting. Decreases pain: sitting and lying down. Pt. also del cid some flexion based exercises with good tolerance as well. She has been seeing pain management, but not having much relief. Pt. is active, but doing mostly stretching at home. Pt. reports physician is thinking about doing a possible surgical intervention above and below the current fusion. Pain Lumbar spine: Pain Intensity (Out of 10): 2 Pain Intensity Range: 0 and 4 Objective Objective: POSTURE: Pt. has slight flexed posture. Rest is fairly normal. PALPATION: pt. has mild tenderness along B lumbar erector spinae. Pt. has marked hypomobility with spring testing. NEURO: pt. has normal sensation and normal DTR of BLEs. ROM: LUMBAR SPINE: flexion min loss NE, mod loss mild increase NW, SB min loss bilat NE, rotation min loss bilat NE. Pt. has good B hip ROM. Slight tightness in B hamstrings and hip flexors. MMT: Pt. has 4+/5 in BLEs. Core strength: poor+. GAIT: pt. has fairly normal gait pattern without increase in symptoms. Pt. has no major postural sway, she does have decreased arm swing bilaterally indicating guarding. STAIRS: normal reciprocal pattern with BHR. Balance/Special Test Scores Oswestry Low Back Score: 14 Goals Goal 1:: LTG: Pt. to be I with HEP. Goal Time Frame: 4-6 Weeks Goal 2:: STG: pt. to sleep throughout the night without increase in back or leg pain. Goal Time Frame: 2-4 Weeks Goal 3:: LTG: Pt. to have have increased B hip and core strength to 4+/5 and fair. Goal Time Frame: 4-6 Weeks Goal 4:: LTG: Pt. to complete all ADLs without increase in symptoms. Goal Time Frame: 4-6 Weeks Goal 5:: LTG: Pt. to be able to walk unlimited distances without radicular symptoms. Goal Time Frame: 4-6 Weeks Rehabilitation Potential Physical Therapy Diagnosis: Pt. has signs and symptoms consistent with lumbar radiculopathy. Pt. did have reduced symptoms with flexion positioning. Pt. has marked weakness and would benefit from PT to address her ROM limitations and her weakness. Rehabilitation Potential: Good Anticipated Interventions Patient/Client Instruction: Educate patient on: Condition, Plan of Care, Risk Factors and Benefits of Fitness Program For the Purpose of:: To improve self management, To prevent re-injury, To improve ability to perform tasks related to life management and To improve tolerance to ADL's Therapeutic Exercise to Include: Strength training, Power training, Endurance training, Postural training, Flexibilty training, Passive ROM, Active ROM, Dynamic Lumbar Stabilization and Carlos Exercises For the Purpose of:: To decrease pain, To decrease swelling/inflammation, To increase ROM, To increase oxygenation perfusion, To improve muscle performance and motor function, To improve health of tissue, To decrease soft tissue restriction, To increase flexibility/ROM and To improve endurance Text: Thank you for the opportunity to evaluate your patient. For Medicare and Medicare HMO plans, please review the plan of care and approve it. It will need to be FAXED BACK to us at [phone] for Medicare purposes. For Medicare only, by signing this I certify the plan of care. Please let me know if there are questions or concerns regarding this plan of care. Physician Jennifer olvera: Date:
--- NOTE | 2025-03-14 09:41 | HP.PTREVAL ---
Re-Evaluation Intro: Dr. Wes Santos MD, It has been my pleasure to treat GORDO AMBROSIO over the last 2 visits for Lumbar radiculopathy. Please see the progress note below for an update on the physical therapy plan of care! Subjective Subjective: Pt. was unable to attend PT due to having a lot medical issues having to be hospitalized for a brain bleed. Pt. did meet again with surgeon whom recommended PT again. He does think that she would need surgery, but patient is not too keen into jumping right back into it. 0/10 pain at rest, With increased walking 8/10. Pain in her legs at night. Objective Objective/Function: pt. continues to have a slight directional preference for flexion. I do believe that neutral spine core stability with be beneficial. Everything seems to be the same as the evaluation. Pt. is still have issues with prolonged standing and at night. Her legs do go numb and tingle. She does have some benefit from flexion exercises, but ultimately I think core strengthening would be helpful. I am asking for further visits to treat her back and spine pain. Plan Plan Plan: 1) flexion based exercises to reduce symptoms 2) neutral spine core stability. No US/IFC, patient has bladder stimulator. HEP at [facility]: [facility], [place], fatoumata in hook lying Balance/Gait/Functional tests Balance/Special Test Scores Oswestry Low Back Score: 14 Goals Goals Goal 1:: LTG: Pt. to be I with HEP. Goal Time Frame: 4-6 Weeks Goal 2:: STG: pt. to sleep throughout the night without increase in back or leg pain. Goal Time Frame: 2-4 Weeks Goal 3:: LTG: Pt. to have have increased B hip and core strength to 4+/5 and fair. Goal Time Frame: 4-6 Weeks Goal 4:: LTG: Pt. to complete all ADLs without increase in symptoms. Goal Time Frame: 4-6 Weeks Goal 5:: LTG: Pt. to be able to walk unlimited distances without radicular symptoms. Goal Time Frame: 4-6 Weeks Anticipated Interventions Anticipated Interventions Patient/Client Instruction: Educate patient on: Condition, Plan of Care, Risk Factors and Benefits of Fitness Program For the Purpose of:: To improve self management, To prevent re-injury, To improve ability to perform tasks related to life management and To improve tolerance to ADL's Therapeutic Exercise to Include: Strength training, Power training, Endurance training, Postural training, Flexibilty training, Passive ROM, Active ROM, Dynamic Lumbar Stabilization and Carlos Exercises For the Purpose of:: To decrease pain, To decrease swelling/inflammation, To increase ROM, To increase oxygenation perfusion, To improve muscle performance and motor function, To improve health of tissue, To decrease soft tissue restriction, To increase flexibility/ROM and To improve endurance Re-Evaluation Ending Re-evaluation ending: Please do not hesitate to contact me at [phone] by phone or if you have questions or concerns regarding this new plan of care! Sincerely, Alirio Hansen DPT
== END 2025-04-15 19:00 | disposition home or self-care (01) ==
LOC: PT 11:30
PROVIDERS: PCP Family Medicine; Referring Provider Orthopaedic Surgery Orthopaedic Surgery of the Spine; Visit Provider Orthopaedic Surgery Orthopaedic Surgery of the Spine
DX: M54.16 Radiculopathy, lumbar region (principal); M43.26 Fusion of spine, lumbar region; M47.816 Spondylosis without myelopathy or radiculopathy, lumbar region
CPT/HCPCS: 97110; 97161; 97530

== ENCOUNTER → 2025-06-09 | Outpatient (CLI) | payer MEDICARE, SELFPAY ==
--- NOTE | 2025-06-09 10:15 | BI_ITS ---
EXAM: BI/SCRN MAMM (CAD)W/DAVIDA BILAT
== END | disposition home or self-care (01) ==
LOC: OPBI 10:02
PROVIDERS: PCP Family Medicine; Referring Provider Nurse Practitioner Family; Visit Provider Nurse Practitioner Family
DX: Z12.31 Encounter for screening mammogram for malignant neoplasm of breast (principal)
CPT/HCPCS: 77063; 77067